=== PATIENT | female | born 1990 | race Caucasian/White ===

== ENCOUNTER 2016-11-26 15:13 | Emergency (ER) | payer OTHER ==
[~2016-11-26] VITALS: Ht 157.5 cm; Wt 50.0 kg
[2016-11-26 15:13] VITALS: Ht 157.5 cm; Wt 50.0 kg
[2016-11-26] MEDS ORDERED: MAGNESIUM SULFATE 2 GM, MULTIVITAMINS 10 ML, THIAMINE 100 MG, FOLIC ACID 1 MG in SOD CH... IV STA (15:23)
[2016-11-26] MEDS ORDERED: ONDANSETRON 4 MG INJ IV STA (15:23)
[2016-11-26] MEDS ORDERED: ALPR0.5T PO (15:46)
[2016-11-26 16:07] LABS: BASOPHIL # 0.1 10^3/ul (0.0-0.1); BASOPHILS % 1.9 % (0.0-2.0); EOSINOPHILS # 0.1 10^3/ul (0.0-0.5); EOSINOPHILS % 1.1 % (0.0-7.0); HEMATOCRIT 45.3 % (37.0-47.0); HEMOGLOBIN 15.6 g/dl (12.0-16.0); LYMPHOCYTES # 1.4 10^3/ul (0.8-2.9); LYMPHOCYTES % 29.2 % (15.0-51.0); MEAN CORPUSCULAR HEMOGLOBIN 33.1 pg (29.0-33.0); MEAN CORPUSCULAR HGB CONC 34.4 g/dl (32.0-37.0); MEAN CORPUSCULAR VOLUME 96.3 fl (82.0-101.0); MEAN PLATELET VOLUME 7.7 fl (7.4-10.4); MONOCYTE # 0.2 10^3/ul (0.3-0.9); MONOCYTES % 4.8 % (0.0-11.0); NEUTROPHIL # 3.1 10^3/ul (1.6-7.5); PLATELET COUNT 276 10^3/UL (140-440); RED BLOOD COUNT 4.71 10^6/ul (4.20-5.40); RED CELL DISTRIBUTION WIDTH 12.4 % (11.5-14.5); UNCORRECTED WBC 4.9 10^3/ul (4.8-10.8); WHITE BLOOD COUNT 4.9 10^3/ul (4.8-10.8)
[2016-11-26 16:08] LABS: CONDITION 1
[2016-11-26 16:39] LABS: ALBUMIN 4.9 g/dl (3.3-4.9)
[2016-11-26 16:40] LABS: POTASSIUM 3.5 mmol/L (3.5-5.1)
[2016-11-26 16:41] LABS: CREATININE 0.59 mg/dl (0.44-1.00)
[2016-11-26 16:42] LABS: ALBUMIN/GLOBULIN RATIO 1.53; BILIRUBIN,INDIRECT 0.3 mg/dl (0-1.1); BILIRUBIN,TOTAL 0.3 mg/dl (0.2-1.3); TOTAL PROTEIN 8.1 g/dl (6.1-8.1)
--- NOTE | 2016-11-26 16:42 | ERD ---
ER Documentation Chief Complaint Date/Time DATE: 11/26/16 TIME: 16:35 Chief Complaint etoh x 6 days HPI This is a 26-year-old female that was brought into the emergency department by EMS after a friend had come to visit her and found her intoxicated in her condo. The patient indicates she has a history of alcohol abuse and binge drinks. The past 6 days she has been drinking a significant amount of alcohol and also indicates she took a few tablets of Xanax. She indicates she had no suicidal homicidal thoughts or ideations. She stated she took 1 0.5 mg Xanax roughly 24 hours ago. She has had a history of delirium tremors in the past and indicates she has not had any recent or remote blunt or penetrating head chest or abdominal trauma. She denies a headache or changes in vision. She feels very nauseous but denies any hemoptysis hematemesis or melanotic stools ROS All systems reviewed and are negative except as per history of present illness. Medications Home Meds Reported Medications Alprazolam* (Xanax*) 0.5 Mg Tab, 0.5 MG PO QHS Y for ANXIETY, TAB 11/26/16 Allergies Allergies: Coded Allergies: No Known Allergy (Unverified , 11/26/16) PMhx/Soc Medical and Surgical Hx: pt denies Surgical Hx History of Surgery: No Anesthesia Reaction: No Hx Neurological Disorder: No Hx Respiratory Disorders: No Hx Cardiac Disorders: No Hx Psychiatric Problems: Yes (anxiety) Hx Miscellaneous Medical Probl: Yes (pancreatitis) Hx Alcohol Use: Yes (2 "fifth" of vodka in 6 days ) Hx Substance Use: No Hx Tobacco Use: No Smoking Status: Never smoker Physical Exam Vitals Vital Signs Date Time Temp Pulse Resp B/P Pulse Ox O2 Delivery O2 Flow Rate FiO2 11/26/16 15:13 98.3 88 20 144/83 100 Physical Exam Constitutional:Well-developed. Well-nourished. Lying supine in his stretcher. HEENT:Normocephalic. Atraumatic.Pupils were 4 mm equal round reactive to light. Moist mucous membranes.No tonsillar exudates. Neck: No nuchal rigidity. No lymphadenopathy. No posterior cervical spine tenderness or step-offs. Respiratory: Not using accessory muscles of respiration.Lungs were clear to auscultation bilaterally. No rhonchi. No rales. No wheezing. Cardiovascular: Regular rate regular rhythm.No murmurs. No rubs were appreciated.S1, S2 normal. Distal pulses are palpable 2+ bilaterally. GI: Abdomen was soft. Nontender. Non Distended. No pulsatile abdominal masses or bruits. No rebound. No guarding. Bowel sounds were present and normal. Muscle skeletal: Full range of motion of both the upper and lower extremities bilaterally.Normal muscle tone.No assymetrical calf tenderness or swelling. Skin: No petechia, no purpura. No lesions on the palms or the soles of the feet. No maculopapular rash. NEURO: Patient was alert, awake, orientated x3.No facial droop. Gait was not observed as patient was too altered to ambulate.Speech was slurred and patient smelled of alcohol. No focal neurological deficits. Result Diagram: 11/26/16 1500 Results 24 hrs Laboratory Tests Test 11/26/16 15:00 Basophils # 0.110^3/ul Basophils % 1.9% Eosinophils # 0.110^3/ul Eosinophils % 1.1% Hematocrit 45.3% Hemoglobin 15.6g/dl Lymphocytes # 1.410^3/ul Lymphocytes % 29.2% Mean Corpuscular Hemoglobin 33.1pg Mean Corpuscular Hemoglobin Concent 34.4g/dl Mean Corpuscular Volume 96.3fl Mean Platelet Volume 7.7fl Monocytes # 0.210^3/ul Monocytes % 4.8% Neutrophils # 3.110^3/ul Neutrophils % 63.0% Nucleated Red Blood Cells # 0.010^3/ul Nucleated Red Blood Cells % 0.0/100WBC Platelet Count 01536^3/UL Red Blood Count 4.7110^6/ul Red Cell Distribution Width 12.4% White Blood Count 4.910^3/ul Current Medications Medications (Trade) Dose Ordered Sig/Max Route PRN Reason Start Time Stop Time Status Last Admin Dose Admin Magnesium Sulfate/ Multivitamins/ Thiamine HCl/ Folic Acid/Sodium Chloride (Magnesium Sulfate/Mvi Adult/ Vitamin B1/Folic Acid/NS) 1,015.2 ml @ 500 mls/ hr Q2H2M STAT IV 11/26/16 15:23 11/26/16 17:24 Ondansetron HCl (Zofran Inj) 4 mg ONCE STAT IV 11/26/16 15:23 11/26/16 15:26 DC 11/26/16 15:53 Procedures/MDM The patient presented to the emergency department with an acute and persistent change in their mental status thought to be secondary to alcohol intoxication. The differential diagnosis is diverse however reversible causes such as hypoglycemia, opiate overdose, thiamine deficiency were immediately considered. The patient was placed on a microarray specialist, continuous pulse oximetry and IV access was established. The patients airway was secure however hypoxic events such as anemia, shock, or severe pulmonary disease were all considered as etiologies in this patients presentation. Circulation assessed with good cap refill and did not require fluids or pressure support. Finger stick for rapid glucose determined to be normal. The patient had IV access established by nursing staff and was given a banana bag which included folic acid thiamine and multivitamin. The patient had no evidence of blunt or penetrating head trauma and therefore did not feel is necessary to obtain a CT scan of the head at this time. Observation Note: Time: 4 hours Family Hx: No Hypertension Evaluation: Multiple exams showed improving symptoms and no evidence of impending delirium tremors. Speech was not slurred. Patient was able to ambulate with no ataxia. The patient was discharged home in fair condition. They were instructed to return to the emergency department at any time if there was any worsening of their condition. The patient stated they would follow up with their PCP in the next 24-48 hours to initiate a suitable medication regimen under the care of their PCP as well as to allow their PCP to monitor any drug reactions. The patient was discharged home with prescriptions after they gave informed consent to the new medication. They were also fully informed by myself on the adverse effects and adverse drug interactions in order to provide adequate safeguards to prevent possible adverse reactions to medications. Departure Diagnosis: Primary Impression: Alcoholic intoxication Complication of substance-induced condition: uncomplicated Qualified Code: F10.120 - Alcoholic intoxication, uncomplicated Additional Impression: Encephalopathy, toxic Condition: Fair KRISTY ARGUETA Nov 26, 2016 16:41
[2016-11-26 16:43] LABS: CALCIUM 8.9 mg/dl (8.4-10.2)
[2016-11-26 16:55] LABS: BENZODIAZEPINES Negative (NEGATIVE)
[2016-11-26 17:07] LABS: CANNABINOIDS Negative (NEGATIVE); COCAINE Negative (NEGATIVE); OPIATES Negative (NEGATIVE)
[2016-11-26 17:22] LABS: BARBITURATES Negative (NEGATIVE)
[2016-11-26 17:30] LABS: AMYLASE 80 U/L (11-123)
[2016-11-26 20:05] VITALS: BP 119/78; PULSE 80; RESP 20; TEMP 98.6
== END 2016-11-26 20:05 | disposition home or self-care (01) ==
LOC: E/R 15:13
DX: F10.120 Alcohol abuse with intoxication, uncomplicated (principal); G92 Toxic encephalopathy; T51.94XA Toxic effect of unspecified alcohol, undetermined, initial encounter; R40.2142 Coma scale, eyes open, spontaneous, at arrival to emergency department; R40.2252 Coma scale, best verbal response, oriented, at arrival to emergency department; R40.2362 Coma scale, best motor response, obeys commands, at arrival to emergency department
CPT/HCPCS: 80053; 80303; 80320; 82150; 83690; 85025; 96374; 96375; J2405; J3411; J3475; J7030; Z7502; Z7610; 80306; 80307